=== PATIENT | female | born 1995 | race Caucasian/White ===

== ENCOUNTER 2018-07-17 22:28 | Emergency (ER) | payer OTHER ==
--- NOTE | 2018-07-17 22:41 | EDPHY ---
H & P Stated Complaint: at PCP today, +Maddie Cormier shoulder pain, "Factor 5" Source: Patient Exam Limitations: No limitations - Personal History LMP (Females 10-55): 8-14 Days Ago Current Tetanus Diphtheria and Acellular Pertussis (TDAP): Yes - Medical/Surgical History Hx Asthma: Yes Hx Chronic Respiratory Disease: No Hx Diabetes: No Hx Cardiac Disease: No Hx Renal Disease: No Hx Cirrhosis: No Hx Alcoholism: No Hx HIV/AIDS: No Hx Splenectomy or Spleen Trauma: No Other PMH: Factor 5 - Social History Smoking Status: Never smoked Time Seen by Provider: 07/17/18 22:39 HPI/ROS: HPI: This is a 22-year-old female who presents with Chief Complaint: at PCP today, +Ddimer, L shoulder pain, "Factor 5" Location: Left shoulder Quality: Pain Duration: Since this weekend Signs and Symptoms: no shortness of breath at rest, no shortness of breath on exertion, no cough, no chest pain, no palpitations, no lower extremity edema, no wheezing, no orthopnea, no paroxysmal nocturnal dyspnea, no fever, no injury/ trauma, no hemoptysis, no carpal pedal spasms Timing: Acute, waxes and wane Severity: Moderate Context: Patient has a history of factor 5 presents with a positive D-dimer from her primary care office from [place] for further workup. She reports that since this weekend she is having swollen glands and left shoulder discomfort that waxes and wanes. She reports that the pain goes away with Advil but returns once it wears off. Denies any tobacco use, recent long distance travel, hormone supplementation. She is right-hand dominant. Denies any upper respiratory or viral symptoms. Has no lower extremity edema or calf pain. Student at [employer] and Lives in a sorority house. Does complain of some swollen glands and fatigue but denies fever, body aches , neck stiffness. Modifying Factors: See above Comment: ROS: A comprehensive 10 system review of systems is otherwise negative aside from elements mentioned in the history of present illness. MEDICAL/SURGICAL/SOCIAL HISTORY: Medical history: Factor 5. Does not take any regular medications. LMP 1-2 weeks ago. Surgical history: Denies Social history: Denies smoking. CONSTITUTIONAL: Extremely well-appearing young adult white female, awake and alert, no obvious distress HEENT: Atraumatic and normocephalic, PERRL, EOMI. Nares patent; no rhinorrhea; no nasal mucosal edema. Tympanic membranes clear. Oropharynx clear, no exudate and moist pink mucosa. Airway patent. No lymphadenopathy. No meningismus. Cardiovascular: Normal S1/S2, regular rate, regular rhythm, without murmur rub or gallop. PULMONARY/CHEST: Symmetrical and nontender. Clear to auscultation bilaterally. Good air movement. No accessory muscle usage. ABDOMEN: Soft, nondistended, nontender, no rebound, no guarding, no peritoneal signs, no masses or organomegaly. No CVAT. EXTREMITIES: 2/2 pulses, strength 5/5, left SHOULDER: Arc test abduction to 180, abduction to 45, horizontal flexion 130, horizontal extension to 45, deltoid strength 5/5. No pain with Neer test/Acevedo test (impingement). Mild Tenderness to palpation over AC joint. no deformities, no clubbing, no cyanosis or edema. NEUROLOGICAL: no focal neuro deficits. GCS 15. SKIN: Warm and dry, no erythema. no rash. Good capillary refill. ([place]) Constitutional: Initial Vital Signs Temperature (C) 36.7 C 07/17/18 22:33 Heart Rate 74 07/17/18 22:33 Respiratory Rate 18 07/17/18 22:33 Blood Pressure 137/94 H 07/17/18 22:33 O2 Sat (%) 96 07/17/18 22:33 O2 Delivery Mode Room Air Allergies/Adverse Reactions: No Known Allergies Allergy (Unverified 07/17/18 22:35) Home Medications: Medication Instructions Recorded FLUoxetine 07/17/18 Microgestin Fe 1.5-30 Tab 07/17/18 Montelukast Sodium 07/17/18 Qvar Redihaler 07/17/18 Medical Decision Making ED Course/Re-evaluation: Vital signs reviewed and stable upon arrival. O2 sats 96% on room air. IV access and laboratory studies along with CTA chest ordered 2305: Labs reviewed. No signs of leukocytosis/anemia/platelet dysfunction/ELAH/ elevated LFTs/electrolyte imbalance/ 2346: + mono 0005: End of Shift. Signed over to Dr. Vegas pending CTA chest results. This patient was seen under the supervision of my secondary supervising physician. I evaluated care for this patient independently. Discussed this patient with Dr. Vegas. (Azucena Hidalgo) PHYSICIAN DOCUMENTATION: The patient was evaluated and managed by the Physician Flake Miller Helper. My co- signature indicates that I have reviewed this chart and I agree with the findings and plan of care as documented. I am the secondary supervising physician. (Frida Vegas) Differential Diagnosis: Shortness of breath including but not limited to pulmonary infectious process, COPD, asthma, pulmonary embolus and congestive heart failure. (Azuecna Hidalgo) - Data Points Laboratory Results: Laboratory Results 07/17/18 22:47 07/17/18 22:47 07/17/18 07/17/18 07/17/18 22:47 22:47 22:47 WBC 10.42 10^3/uL H 10^3/uL (3.80-9.50) RBC 5.17 10^6/uL 10^6/uL (4.18-5.33) Hgb 14.9 g/dL g/dL (12.6-16.3) Hct 44.5 % % (38.0-47.0) MCV 86.1 fL fL (81.5-99.8) MCH 28.8 pg pg (27.9-34.1) MCHC 33.5 g/dL g/dL (32.4-36.7) RDW 13.3 % % (11.5-15.2) Plt Count 224 10^3/uL 10^3/uL (150-400) MPV 9.5 fL fL (8.7-11.7) Neut % (Auto) Not Reported Lymph % (Auto) Not Reported Bailey % (Auto) Not Reported Eos % (Auto) Not Reported Baso % (Auto) Not Reported Nucleat RBC Rel Count Not Reported Absolute Neuts (auto) Not Reported Absolute Lymphs (auto) Not Reported Absolute Monos (auto) Not Reported Absolute Eos (auto) Not Reported Absolute Basos (auto) Not Reported Absolute Nucleated RBC Not Reported Immature Gran % Not Reported Seg Neutrophils % 38.4 % % Band Neutrophils % 0.0 % % Lymphocytes % 55.6 % % Monocytes % 5.0 % % Eosinophils % 1.0 % % Basophils % 0.0 % % Metamyelocytes % 0.0 % % Myelocytes % 0.0 % % Promyelocytes % 0.0 % % Blast Cells % 0.0 % % Immature Gran # Not Reported Absolute Seg Neuts 4.00 10^3/uL 10^3/uL (1.70-6.50) Absolute Band Neuts 0.00 10^3/uL 10^3/uL (0.00-0.70) Absolute Lymphocytes 5.79 10^3/uL H 10^3/uL (1.00-3.00) Absolute Monocytes 0.52 10^3/uL 10^3/uL (0.30-0.80) Absolute Eosinophils 0.10 10^3/uL 10^3/uL (0.03-0.40) Absolute Basophils 0.00 10^3/uL L 10^3/uL (0.02-0.10) Absolute Metamyelocyte 0.00 10^3/mL 10^3/mL (0.00-0.00) Absolute Myelocytes 0.00 10^3/mL 10^3/mL (0.00-0.00) Absolute Promyelocytes 0.00 10^3/uL 10^3/uL (0.00-0.00) Absolute Plasma Cells 0.00 10^3/uL 10^3/uL (0.00-0.00) Nucleated RBCs 0 /100 WBC /100 WBC (0-0) RBC/WBC/PLT Morphology NORMAL (NORMAL) Absolute Blast Cells 0.00 10^3/uL 10^3/uL (0.00-0.00) Plasma Cells % 0.0 % % Platelet Estimate ADEQUATE (ADEQ) Sodium 144 mEq/L mEq/L (135-145) Potassium 4.2 mEq/L mEq/L (3.3-5.0) Chloride 109 mEq/L mEq/L (97-110) Carbon Dioxide 22 mEq/l mEq/l (22-31) Anion Gap 13 mEq/L mEq/L (6-14) BUN 11 mg/dL mg/dL (7-23) Creatinine 0.8 mg/dL mg/dL (0.6-1.0) Estimated GFR > 60 Glucose 113 mg/dL H mg/dL (70-100) Calcium 9.6 mg/dL mg/dL (8.5-10.4) Total Bilirubin 0.4 mg/dL mg/dL (0.1-1.4) Conjugated Bilirubin 0.2 mg/dL mg/dL (0.0-0.5) Unconjugated Bilirubin 0.2 mg/dL mg/dL (0.0-1.1) AST 70 IU/L H IU/L (14-46) ALT 122 IU/L H IU/L (9-52) Alkaline Phosphatase 106 IU/L IU/L (38-126) Creatine Kinase 61 IU/L IU/L (0-156) Total Protein 8.2 g/dL g/dL (6.3-8.2) Albumin 4.6 g/dL g/dL (3.5-5.0) Beta HCG, Qual NEGATIVE Monoscreen POSITIVE H (NEGATIVE) Departure - Departure Clinical Impression: Infectious mononucleosis without complication Qualifiers: Infectious mononucleosis etiology: unspecified organism Qualified Code(s): B27.90 - Infectious mononucleosis, unspecified without complication Condition: Fair
[2018-07-17] MEDS ORDERED: IOPAMIDOL (ISOVUE 370) 100 ML BTL IV ONE (22:49)
[2018-07-17 22:55] LABS: PLATELET COUNT 224 10^3/uL (150-400)
[2018-07-17 23:10] LABS: CREATINE KINASE 61 IU/L (0-156)
[2018-07-18 00:16] VITALS: BP 136/78
== END 2018-07-18 00:15 | disposition home or self-care (01) ==
DX: B27.90 Infectious mononucleosis, unspecified without complication (principal); R79.89 Other specified abnormal findings of blood chemistry; M25.512 Pain in left shoulder; D68.51 Activated protein C resistance
CPT/HCPCS: Q9967